=== PATIENT | male | born 1975 | race Caucasian/White ===

== ENCOUNTER → 2024-08-28 10:21 | Outpatient (BNVA) | payer OTHER, SELFPAY | PROVIDERS: Family Provider Internal Medicine; PCP Nurse Practitioner Family; Visit Provider Nurse Practitioner Family | DX: Z00.00 Encounter for general adult medical examination without abnormal findings (principal) | CPT/HCPCS: 80053; 80061; 85025 ==

== ENCOUNTER 2025-01-26 16:17 | Emergency (ER) | payer OTHER, SELFPAY ==
[2025-01-26 16:29] VITALS: BP 146/81; PULSE 95; RESP 17; TEMP 36.9; O2SAT 98; BMI 30.5
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
--- NOTE | 2025-01-26 16:35 | XRR_ITS ---
PROCEDURE INFORMATION: Exam: XR Chest Exam date and time: 01/26/2025 4:49 PM Age: 49 years old Clinical indication: Cough and dyspnea; Additional info: Dyspnea/cough TECHNIQUE: Imaging protocol: Radiologic exam of the chest. Views: 1 view. COMPARISON: No relevant prior studies available. FINDINGS: Lungs: Unremarkable. No consolidation or mass. Pleural spaces: Unremarkable. No pleural effusion. No pneumothorax. Heart/Mediastinum: Unremarkable. No cardiomegaly. Bones/joints: Unremarkable. XR/XR chest 1V portable [id number] IMPRESSION: No acute findings.
[2025-01-26] MEDS: iohexol 350 mg/mL 500 mL Btl (per mL) IV (17:38)
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
[2025-01-26 18:10] LABS: Add Urine Microscopic? NO
[2025-01-26 18:13] LABS: Bilirubin Urine Negative (Negative); Blood Urine Negative (Negative); Glucose Urine UA Negative (Normal); Ketones Urine Negative (Negative); Leukocyte Esterase Urine Negative (Negative); Nitrate Urine Negative (Negative); Protein Urine Negative (Negative); Specific Gravity, Urine 1.022 (1.005-1.030); Urine Appearance Clear (CLEAR); Urine Color Yellow (Yellow)
[2025-01-26 18:21] LABS: Charge for UA Resulting for Rev
== END 2025-01-26 18:33 | disposition home or self-care (01) ==
PROVIDERS: Emergency Provider Family Medicine; Family Provider Internal Medicine; PCP Nurse Practitioner Family
DX: S12.501A Unspecified nondisplaced fracture of sixth cervical vertebra, initial encounter for closed fracture (principal); S12.691A Other nondisplaced fracture of seventh cervical vertebra, initial encounter for closed fracture; V89.2XXA Person injured in unspecified motor-vehicle accident, traffic, initial encounter
CPT/HCPCS: 70450; 71045; 71260; 72125; 74177; 81003; 85025; 99285

== ENCOUNTER → 2025-01-27 13:21 | Outpatient (BNVA) | payer OTHER, SELFPAY | PROVIDERS: Family Provider Internal Medicine; PCP Nurse Practitioner Family; Visit Provider Orthopaedic Surgery | DX: S12.600A Unspecified displaced fracture of seventh cervical vertebra, initial encounter for closed fracture (principal); S12.591A Other nondisplaced fracture of sixth cervical vertebra, initial encounter for closed fracture; V89.2XXA Person injured in unspecified motor-vehicle accident, traffic, initial encounter; M54.2 Cervicalgia | CPT/HCPCS: 72040 ==

== ENCOUNTER 2025-01-30 09:10 | Outpatient (CLI) | payer OTHER, SELFPAY ==
--- NOTE | 2025-01-30 09:30 | MR_ITS ---
WS: [id number] MRI CERVICAL SPINE NONCONTRAST TECHNIQUE: Sagittal T1, T2 and STIR imaging. Axial T2, gradient, and fiesta imaging. CLINICAL INFORMATION: neck pain COMPARISON: CT cervical spine 01/26/2025 FINDINGS: Straightening of the normal cervical lordosis. Cord signal is normal. Small disc protrusions C4-C5 and C5-C6 worse at C5-C6. Cord signal is normal. Again seen is the RIGHT C7 facet fracture which appears nondisplaced. Small amount of adjacent soft tissue and bony edema. C2-C3: Normal. C3-C4: Mild facet arthropathy. Mild RIGHT foraminal narrowing. C4-C5: Mild disc bulge with endplate ridging. Tiny central protrusion. Mild LEFT bony foraminal narrowing. Mild facet arthropathy. C5-C6: Broad-based central disc protrusion. Mild central canal stenosis. Slight indentation cervical cord. Moderate to severe LEFT greater than RIGHT bony foraminal narrowing. Mild facet arthropathy. C6-C7: Tiny shallow RIGHT paracentral protrusion. Mild bilateral bony foraminal narrowing. Mild facet arthropathy. C7-T1: Mild LEFT and no significant RIGHT foraminal narrowing. Spinal canal is patent. MR/MR cervical spin wo con* [id number] IMPRESSION: 1. Central disc protrusion C5-6 with indentation on the cervical cord and mild central canal stenosis. 2. Moderate to severe LEFT and moderate RIGHT bony foraminal narrowing. 3. No evidence of cord contusion or epidural hematoma 4. Small amount of edema involving the RIGHT C7 facet fracture. Small amount o f surrounding soft tissue edema. No significant displacement 5. Small amount of paravertebral and ligamentous edema at C5-C7.
== END 2025-01-30 09:11 | disposition home or self-care (01) ==
PROVIDERS: Family Provider Internal Medicine; PCP Nurse Practitioner Family; Visit Provider Orthopaedic Surgery
DX: M50.223 Other cervical disc displacement at C6-C7 level (principal); M48.02 Spinal stenosis, cervical region; M47.892 Other spondylosis, cervical region; M50.321 Other cervical disc degeneration at C4-C5 level; M48.03 Spinal stenosis, cervicothoracic region
CPT/HCPCS: 72141

== ENCOUNTER → 2025-02-10 11:13 | Outpatient (BNVA) | payer OTHER, SELFPAY | PROVIDERS: Family Provider Internal Medicine; PCP Nurse Practitioner Family; Visit Provider Orthopaedic Surgery | DX: M54.2 Cervicalgia (principal) | CPT/HCPCS: 72040 ==

== ENCOUNTER → 2025-03-17 10:44 | Outpatient (BNVA) | payer OTHER, SELFPAY | PROVIDERS: Family Provider Internal Medicine; PCP Nurse Practitioner Family; Visit Provider Orthopaedic Surgery | DX: S12.591D Other nondisplaced fracture of sixth cervical vertebra, subsequent encounter for fracture with routine healing (principal); X58.XXXD Exposure to other specified factors, subsequent encounter | CPT/HCPCS: 72040 ==

== ENCOUNTER → 2025-04-23 10:30 | Outpatient (BNVA) | payer OTHER, SELFPAY | PROVIDERS: Family Provider Internal Medicine; PCP Nurse Practitioner Family; Visit Provider Orthopaedic Surgery | DX: S12.591D Other nondisplaced fracture of sixth cervical vertebra, subsequent encounter for fracture with routine healing (principal); M54.2 Cervicalgia; X58.XXXD Exposure to other specified factors, subsequent encounter | CPT/HCPCS: 72040 ==

== ENCOUNTER → 2025-10-06 08:44 | Outpatient (BNVA) | payer OTHER, SELFPAY | PROVIDERS: Family Provider Internal Medicine; PCP Nurse Practitioner Family; Visit Provider Nurse Practitioner Family | DX: Z00.00 Encounter for general adult medical examination without abnormal findings (principal) | CPT/HCPCS: 80053; 84443; 85025; G0103 ==